=== PATIENT | female | born 1955 | race Caucasian/White ===

== ENCOUNTER → 2016-12-31 | Outpatient (CLI) | payer BC ==
[~2016-12-31] VITALS: Ht 170.2 cm; Wt 87.0 kg
[~2016-12-31] MED LIST: CALCIUM 250+D1 EACH PO; LEXAPRO10 MG PO; LIPITOR10 MG PO; SYNTHROID100 MCG PO; VITAMIN B-121000 MC1 SL; VITAMIN D310000 UNI1 PO; WOMEN'S DAILY1 EAC4 PO
[2016-12-31 13:28] VITALS: BP 134/63
== END | disposition home or self-care (01) ==
LOC: IVINF 13:00
DX: M85.80 Other specified disorders of bone density and structure, unspecified site (principal)
CPT/HCPCS: 96365; J3489